=== PATIENT | male | born 1950 | race Caucasian/White ===

== ENCOUNTER 2023-10-29 13:41 | Emergency (ER) | payer OTHER ==
[~2023-10-29] VITALS: Ht 193 cm; Wt 78.1 kg
[2023-10-29] MEDS: TETANUS-DIPTH-ACEL PERTUSSIS 0.5ML SYR Tdap IM ONE (17:40)
[2023-10-29] MEDS: LIDOCAINE 1% HCL (LOCAL ANESTH.) INJ 20ML MDV ID ONE (17:41)
[2023-10-29] MEDS: LIDOCAINE 1% HCL (LOCAL ANESTH.) INJ 20ML MDV ONE (17:41)
[2023-10-29] MEDS ORDERED: CEPH500C PO (17:46)
[2023-10-29 17:51] VITALS: BP 118/62; PULSE 60; RESP 18; TEMP 98.8; O2SAT 97
== END 2023-10-29 17:58 | disposition home or self-care (01) ==
LOC: ER 13:41
DX: S61.012A Laceration without foreign body of left thumb without damage to nail, initial encounter (principal); W26.8XXA Contact with other sharp object(s), not elsewhere classified, initial encounter; Y93.89 Activity, other specified; Y92.89 Other specified places as the place of occurrence of the external cause; Y99.8 Other external cause status
CPT/HCPCS: 12004; 73130; 90471; 90715; J2001